=== PATIENT | male | born 1965 | race Caucasian/White ===

== ENCOUNTER 2024-04-28 07:13 | Outpatient (CLI) | payer BC ==
[2024-04-28] MEDS ORDERED: Iopamidol 300 61% 100 ML VIAL FS ONE (11:30)
== END 2024-04-28 07:14 | disposition home or self-care (01) ==
LOC: CSHCT 07:13
PROVIDERS: ATTEND Urology
DX: N40.1 Benign prostatic hyperplasia with lower urinary tract symptoms (principal); R97.20 Elevated prostate specific antigen [PSA]; E66.9 Obesity, unspecified; K57.30 Diverticulosis of large intestine without perforation or abscess without bleeding; N28.1 Cyst of kidney, acquired
CPT/HCPCS: 74178; Q9967

== ENCOUNTER 2024-05-11 08:10 | Outpatient (CLI) | payer BC | END 2024-05-11 08:11 | disposition home or self-care (01) | LOC: CSHMRI 08:10 | PROVIDERS: ATTEND Urology | DX: R97.20 Elevated prostate specific antigen [PSA] (principal); N40.0 Benign prostatic hyperplasia without lower urinary tract symptoms | CPT/HCPCS: 72197 ==

== ENCOUNTER 2024-11-28 11:32 | Outpatient (CLI) | payer OTHER | END 2024-11-28 11:33 | disposition home or self-care (01) | LOC: CSHDTY/OP 11:32 | PROVIDERS: ATTEND Nurse Practitioner Family | DX: Z71.3 Dietary counseling and surveillance (principal) | CPT/HCPCS: 97802 ==